=== PATIENT | female | born 1995 | race Caucasian/White ===

== ENCOUNTER 2024-08-06 11:50 | Outpatient (CLI) | payer MEDICAID, SELFPAY ==
[2024-08-06 11:50] VITALS: RESP 17; BMI 35.6
[2024-08-06 12:20] VITALS: BP 118/62; PULSE 102
[2024-08-06 12:33] VITALS: BP 118/59; PULSE 102
== END 2024-08-06 12:50 | disposition home or self-care (01) ==
LOC: OPOB 11:55 → OBGYN 11:55
PROVIDERS: Visit Provider Family Medicine
DX: O30.099 Twin pregnancy, unable to determine number of placenta and number of amniotic sacs, unspecified trimester (principal); Z3A.00 Weeks of gestation of pregnancy not specified
CPT/HCPCS: 59025

== ENCOUNTER 2024-08-09 10:15 | Outpatient (CLI) | payer MEDICAID, SELFPAY ==
[2024-08-09 10:23] VITALS: BP 129/69; PULSE 114
[2024-08-09 10:32] VITALS: BMI 36.3
[2024-08-09 10:38] VITALS: BP 124/59; PULSE 101
[2024-08-09 10:47] VITALS: TEMP 36.7
== END 2024-08-09 10:49 | disposition home or self-care (01) ==
LOC: OPOB 10:16 → OBGYN 10:17
PROVIDERS: Visit Provider Family Medicine
DX: O30.099 Twin pregnancy, unable to determine number of placenta and number of amniotic sacs, unspecified trimester (principal); Z3A.00 Weeks of gestation of pregnancy not specified
CPT/HCPCS: 59025